=== PATIENT | male | born 1960 | race Caucasian/White ===

== ENCOUNTER → 2018-10-24 | Emergency (ER) | payer BC ==
[~2018-10-24] VITALS: Ht 170.2 cm; Wt 78.9 kg
[~2018-10-24] MED LIST: AMLODIPINE BESY10 MG PO; AMLODIPINE BESYL5 MG PO; ASPIRIN EC325 MG PO; ATORVASTATIN CA40 MG PO; ISOSORBIDE MONO30 MG PO; LIPITOR10 MG PO; LIPITOR40 MG PO; LISINOPRIL10 MG PO; LISINOPRIL5 MG PO; METOPROLOL SUCC25 MG PO; OMEPRAZOLE20 MG PO
== END ==
LOC: ED 12:18
PROC: 093K7ZZ Control Bleeding in Nasal Mucosa and Soft Tissue, Via Natural or Artificial Opening (ICD-10-PCS; principal; 2018-10-24)
DX: R04.0 Epistaxis (principal); I25.2 Old myocardial infarction; I10 Essential (primary) hypertension; E78.5 Hyperlipidemia, unspecified; Z87.01 Personal history of pneumonia (recurrent); F17.200 Nicotine dependence, unspecified, uncomplicated; Z79.82 Long term (current) use of aspirin; Z79.899 Other long term (current) drug therapy
CPT/HCPCS: 30901; 99283-25

== ENCOUNTER 2019-08-18 12:56 | Emergency (ER) | payer BC ==
[~2019-08-18] VITALS: Ht 170.2 cm; Wt 78.9 kg
--- NOTE | 2019-08-19 06:44 | EKG ---
[facility] [address] [place], [place] [address] Signed Normal sinus rhythm Normal ECG No previous ECGs available Confirmed by ADALID BURNS MD ([id number]) on 08/19/2019 6:44:02 AM Electronically Signed By: ADALID BURNS MD 08/19/19 0644 PATIENT NAME: [email or web address] Electrocardiogram DATE OF : 58 PHYSICIAN: ADALID BURNS MD REPORT #: [id number] REPORT IS CONFIDENTIAL AND NOT TO BE RELEASED WITHOUT AUTHORIZATION
== END 2019-08-18 17:07 | disposition home or self-care (01) ==
LOC: ED 12:56
DX: R07.89 Other chest pain (principal); I25.2 Old myocardial infarction; I10 Essential (primary) hypertension; E78.5 Hyperlipidemia, unspecified; Z71.6 Tobacco abuse counseling; Z79.899 Other long term (current) drug therapy; Z79.82 Long term (current) use of aspirin
CPT/HCPCS: 71045; 80053; 83735; 84484; 85025; 87880; 93005; 93010; 99285-25; 99406

== ENCOUNTER 2021-05-23 11:59 | Emergency (ER) | payer BC ==
[~2021-05-23] VITALS: Ht 170.2 cm; Wt 77.6 kg
[2021-05-23] MEDS ORDERED: PREDNISONE20 MG PO (15:15)
== END 2021-05-23 15:50 | disposition home or self-care (01) ==
LOC: ED 11:59
DX: I71.4 Abdominal aortic aneurysm, without rupture (principal); M54.16 Radiculopathy, lumbar region; I25.2 Old myocardial infarction; I10 Essential (primary) hypertension; E78.5 Hyperlipidemia, unspecified; F17.200 Nicotine dependence, unspecified, uncomplicated; Z87.01 Personal history of pneumonia (recurrent); Z79.899 Other long term (current) drug therapy
CPT/HCPCS: 74176; 80053; 81001; 83690; 85007; 85025; 99284-25; J1100

== ENCOUNTER 2022-04-23 11:12 | Emergency (ER) | payer OTHER ==
[~2022-04-23] VITALS: Ht 170.2 cm; Wt 77.1 kg
[~2022-04-23 11:12] MED LIST changes: +PREDNISONE20 MG PO
[2022-04-23] MEDS ORDERED: DOXYCYCLINE HY100 MG PO (15:47)
[2022-04-23] MEDS ORDERED: HYDROCODON-ACE1 EA10 PO (15:47)
== END 2022-04-23 16:00 | disposition home or self-care (01) ==
LOC: ED 11:12
DX: M66.0 Rupture of popliteal cyst (principal); I10 Essential (primary) hypertension; I25.2 Old myocardial infarction; E78.5 Hyperlipidemia, unspecified; F17.200 Nicotine dependence, unspecified, uncomplicated; Z79.899 Other long term (current) drug therapy; Z79.82 Long term (current) use of aspirin
CPT/HCPCS: 36415; 80053; 85025; 85060; 93971; 99284-25

== ENCOUNTER 2023-07-05 10:13 | Emergency (ER) | payer BC ==
[~2023-07-05] VITALS: Ht 170.2 cm; Wt 74.7 kg
[~2023-07-05 10:13] MED LIST changes: +DOXYCYCLINE HY100 MG PO; +HYDROCODON-ACE1 EA10 PO
[2023-07-05] MEDS ORDERED: NITROGLYCERIN0.4 MG SL (10:25)
[2023-07-05] MEDS ORDERED: NICOTINE GUM2 MG MT (10:25)
[2023-07-05 11:40] VITALS: BP 117/68
== END 2023-07-05 11:40 | disposition home or self-care (01) ==
LOC: ED 10:13
DX: R04.0 Epistaxis (principal); I25.2 Old myocardial infarction; I10 Essential (primary) hypertension; E78.5 Hyperlipidemia, unspecified; F17.200 Nicotine dependence, unspecified, uncomplicated; Z79.899 Other long term (current) drug therapy; Z79.82 Long term (current) use of aspirin; Z95.1 Presence of aortocoronary bypass graft
CPT/HCPCS: 30903; 99283-25

== ENCOUNTER 2023-07-06 11:59 | Emergency (ER) | payer BC ==
[~2023-07-06] VITALS: Ht 170.2 cm; Wt 74.7 kg
[~2023-07-06 11:59] MED LIST changes: +NICOTINE GUM2 MG MT; +NITROGLYCERIN0.4 MG SL
--- OUTSIDE RECORDS SUMMARY | 2023-07-06 12:07 | XMS ---
PreManage Notification: LINDA EDWARD Security Statistics Teacher Events No recent Security Events currently on file CRITERIA MET - [facility] - 2 Visits in 30 Days CARE PROVIDERS BEN [facility] Current PHONE: [phone] Jorje has no Care Guidelines for this patient. E.Yuly VISIT COUNT (12 MO.) 2 [facility] TOTAL 2 NOTE: Visits indicate total known visits. ED/UCC VISIT TRACKING (12 MO.) 07/06/2023 11:[address] [facility] TYPE: Emergency COMPLAINT: - BLOODY NOSE 07/05/2023 10:[address] [facility] TYPE: Emergency COMPLAINT: - NOSE BLEED INPATIENT VISIT TRACKING (12 MO.) No inpatient visits to display in this time frame [email or web address]
[2023-07-06 13:10] VITALS: BP 138/87
== END 2023-07-06 13:10 | disposition home or self-care (01) ==
LOC: ED 11:59
DX: R04.0 Epistaxis (principal); I25.2 Old myocardial infarction; I10 Essential (primary) hypertension; F17.200 Nicotine dependence, unspecified, uncomplicated; Z79.899 Other long term (current) drug therapy; Z79.82 Long term (current) use of aspirin; Z95.1 Presence of aortocoronary bypass graft
CPT/HCPCS: 99282

== ENCOUNTER 2024-02-21 08:26 | Emergency (ER) | payer BC ==
[~2024-02-21] VITALS: Ht 170.2 cm; Wt 76.5 kg
[2024-02-21] MEDS ORDERED: METOPROLOL SUCC50 MG PO (08:37)
[2024-02-21] MEDS ORDERED: ATORVASTATIN CA80 MG PO (08:37)
[2024-02-21] MEDS ORDERED: OMEPRAZOLE20 M1 PO (08:37)
[2024-02-21 10:06] VITALS: BP 100/68
== END 2024-02-21 10:37 | disposition home or self-care (01) ==
LOC: ED 08:26
DX: R04.0 Epistaxis (principal); I10 Essential (primary) hypertension; E78.5 Hyperlipidemia, unspecified; F17.200 Nicotine dependence, unspecified, uncomplicated; Z79.899 Other long term (current) drug therapy
CPT/HCPCS: 99283